=== PATIENT | female | born 1950 | race Caucasian/White ===

== ENCOUNTER 2022-11-13 13:04 | Inpatient (IN) | payer BC ==
[2022-11-13] VITALS (25 sets, daily range): BP systolic 106–161; BP diastolic 67–94
[~2022-11-13] VITALS: Ht 160 cm; Wt 65.3 kg
--- NOTE | 2022-11-13 13:05 | NUR ---
DR HAN AT BEDSIDE
[2022-11-13] MEDS ORDERED: PROPOFOL 100 ML ONE (13:19)
[2022-11-13] MEDS ORDERED: ENOX40DI SQ (13:42)
[2022-11-13] MEDS ORDERED: BUTA1CAP45 PO (13:42)
[2022-11-13] MEDS ORDERED: CEPH500C2 PO (13:42)
[2022-11-13] MEDS ORDERED: HYDR-4303 PO (13:42)
[2022-11-13 13:53] LABS: BASOPHILS # (AUTO) 0.1 K/uL (0.0-0.2); BASOPHILS % (AUTO) 0.8 % (0.0-2.0); HEMATOCRIT 43 % (33-45); HEMOGLOBIN 13.5 g/dL (11.5-14.8); LYMPHOCYTES # (AUTO) 0.5 K/uL (0.8-4.8); LYMPHOCYTES % (AUTO) 3.2 % (20.0-44.0); MEAN CORPUSCULAR HGB CONC 31 g/dl (31.0-36.0); MEAN CORPUSCULAR VOLUME 96 fL (82-100); MONOCYTES % (AUTO) 6.4 % (2.0-12.0); NEUTROPHILS # (AUTO) 14.1 K/uL (1.8-8.9); NEUTROPHILS % (AUTO) 89.6 % (43.0-81.0); PLATELET COUNT (AUTO) 277 K/uL (150-450); RED BLOOD CELL COUNT(AUTO) 4.49 MIL/uL (4.0-5.2); WHITE BLOOD COUNT (AUTO) 15.7 K/uL (4.3-11.0)
--- NOTE | 2022-11-13 13:55 | NUR ---
PATIENT CAME IN ALREADY INTUBATED WITH 7.0 ETT 23@LIP. PATIENT ETT WERE SECURED WITH EQUAL CHEST RISE AND BILATERAL BREATH SOUND NOTED. PATIENT WAS PLACED ON OUR VENTILATOR WITH AC 16, 500, 80%, +5. XRAY TAKEN AND ETT IN PLACE. Addendum: 11/13/22 at 1358 by ROSIO SMITH RT Amended: Links added.
[2022-11-13] MEDS ORDERED: PROPOFOL 1,000 MG/100 ML BOTTLE IV ONE (14:00)
--- NOTE | 2022-11-13 14:00 | NUR ---
RAPID COVID SWAB DONE AND SENT TO LAB
--- NOTE | 2022-11-13 14:20 | NUR ---
LAUNDRY FOLDER AT BEDSIDE FOR ABG
--- NOTE | 2022-11-13 14:45 | NUR ---
DR. HAN INCREASE PEEP TO 10 AND RR 20 AFTER ABG Addendum: 11/13/22 at 1446 by ROSIO SMITH RT Amended: Links added.
[2022-11-13] MEDS ORDERED: IV NS 0.9% 1,000 ML IV PRN (15:00)
[2022-11-13] MEDS ORDERED: MAGNESIUM HYDROXIDE 30 ML UDC PO PRN (15:00)
[2022-11-13] MEDS ORDERED: MAG HYDROX/AL HYDROX/SIMETH 30 ML UDC PO PRN (15:00)
[2022-11-13] MEDS ORDERED: ONDANSETRON HCL/PF 4 MG/2 ML VIAL IVP PRN (15:00)
[2022-11-13] MEDS ORDERED: ACETAMINOPHEN 325 MG TABLET PO PRN (15:00)
[2022-11-13] MEDS: POTASSIUM CHLORIDE 20 MEQ TAB.PRT.SR PO SCH ×3 (15:00→17:00)
--- NOTE | 2022-11-13 15:01 | NUR ---
PAGED DR. SOLARES FOR PICC LINE
[2022-11-13 15:36] LABS: ALANINE AMINOTRANSFERASE 103 U/L (12-78); ALBUMIN 2.5 g/dL (3.4-5.0); ALKALINE PHOSPHATASE 48 U/L (46-116); ASPARTATE AMINOTRANSFERASE 163 U/L (15-37); BILIRUBIN,DIRECT 0.1 mg/dL (0.0-0.2); BILIRUBIN,TOTAL 0.2 mg/dL (0.2-1.0); CALCIUM, SERUM 7.5 mg/dL (8.5-10.1); CARBON DIOXIDE 26 mmol/L (21-32); CHLORIDE 107 mmol/L (98-107); CREATININE 1.2 mg/dL (0.6-1.3); GLUCOSE 195 mg/dL (74-106); SODIUM SERUM 137 mmol/L (136-145); TOTAL PROTEIN, SERUM 5.2 g/dL (6.4-8.2); UREA NITROGEN, BLOOD 15 mg/dL (7-18)
[2022-11-13] MEDS: NOREPINEPHRINE 32 MG in IV NS 0.9% 218 ML IV PRN ×2 (15:38→18:56)
--- NOTE | 2022-11-13 15:50 | NUR ---
RESP TECH AT BEDSIDE FOR ABG
[2022-11-13 15:54] LABS: ABG BASE EXCESS -6.2 mmol/L; ABG OXYGEN SATURATION 95.8 % (92.0-98.5); ABG PCO2 45.5 mmHg (35.0-45.0); ABG PH 7.274 (7.350-7.450); ABG PO2 82.7 mmHg (75.0-100.0); AaDO2 439.9 mmHg; COHb 0.6 % (0.5-1.5); MetHb 0.5 % (0.0-1.5); O2Hb 94.7 % (94.0-97.0); PEEP,BG 5 cm H2O; SITE, ABG Right Radial; VT, ABG 500 mL
[2022-11-13 15:56] LABS: ABG BASE EXCESS -5.8 mmol/L; ABG OXYGEN SATURATION 96.6 % (92.0-98.5); ABG PCO2 45.9 mmHg (35.0-45.0); ABG PH 7.279 (7.350-7.450); ABG PO2 90.7 mmHg (75.0-100.0); AaDO2 431.5 mmHg; COHb 0.8 % (0.5-1.5); MetHb 0.7 % (0.0-1.5); O2Hb 95.2 % (94.0-97.0); PEEP,BG 10 cm H2O; SITE, ABG Right Radial; VT, ABG 500 mL
[2022-11-13] MEDS: PIPERACILLIN /TAZOBACTAM 3.375 G in IV D5W 50 ML IV SCH ×2 (16:50→23:24)
--- NOTE | 2022-11-13 16:55 | NUR ---
REPORT GIVEN TO GISSEL HENNING OF ICU
[2022-11-13] MEDS ORDERED: FUROSEMIDE 40 MG/4 ML VIAL ONE (16:57)
[2022-11-13] MEDS ORDERED: VANCOMYCIN 1 GM in IV D5W 250 ML IV ONE (17:00)
[2022-11-13] MEDS: FUROSEMIDE 40 MG/4 ML VIAL IV SCH ×3 (17:05→23:24)
--- NOTE | 2022-11-13 17:45 | NUR ---
RN note - admission to ICU Received patient from ER, transported to ICU by RN ALEXA Byers and RT Gayatri. monitor technician showed SR HR 79/min. BP 133/82mmhg with levophed at 0.01mcg/kg/hr. Intubated with size 7 ETT, marking at lip 23cm. Suported by ventilator, AC mode, rate 20/min. TV 500mL, FiO2 80%, PEEP [id number]. Spo2 100%, RR 22/min. Patient is on propofol sedation increasing to 35 mcg/min/kg. Circulation over bilateral hands is good with restraints use. There's some oozing from the main abdominal wound(on the abdominal corset). Keep trendenlenberg position to reduce abdominal pressure. Call dang is placed within reach. Bed is locked and placed in the lowest position. All safety measures have been implemented. Will continue monitoring and care.
[2022-11-13] MEDS: PROPOFOL 100 ML IV PRN ×2 (18:53→21:23)
--- NOTE | 2022-11-13 19:00 | NUR ---
RN note ER nurse Zeeshan just handed a bag of 1g Vancomycin upon transfer of patient. Checked in the eMAR that it was registered as given. Notified pharmacy about the situation and pharmacist said to proceed to administer as it was the loading dose of vancomycin. Adminsitered at 19:00 via peripheral line.
--- NOTE | 2022-11-13 19:30 | NUR ---
RN note - KCL replacement Clarified with MD DR. Hawthorne about the need for KCL replacement as patient's potassium was 4mmol/L at 14:00. said no need to administer KCL tab and check CBC and BMP tomorrow. Will follow.
--- NOTE | 2022-11-13 19:45 | NUR ---
RCVD PT ORALLY INTUBATED 7.0 SECURED @ 23CM LIP LINE ON VENT SETTINGS OF AC 20, VT 500, FIO2 80% AND PEEP 10. VENT PLUGGED INTO RED OUTLET, VENT ALARMS ON AND AUDIBLE. NO RESPIRATORY DISTRESS NOTED AT THIS TIME. WILL CONTINUE TO MONITOR T/O SHIFT.
[2022-11-13] MEDS ORDERED: MAGNESIUM HYDROXIDE 30 ML UDC GT PRN (19:47)
[2022-11-13] MEDS ORDERED: MAG HYDROX/AL HYDROX/SIMETH 30 ML UDC GT PRN (19:47)
[2022-11-13] MEDS ORDERED: PHARMACY TO CHANGE PO MEDS TO GT/NG XX PRN (20:00)
[2022-11-13] MEDS ORDERED: ACETAMINOPHEN 650 MG/20.3 ML UDC NG PRN (20:00)
[2022-11-13] MEDS ORDERED: ACETAMINOPHEN 650 MG/20.3 ML UDC GT PRN (20:00)
--- NOTE | 2022-11-13 20:22 | NUR ---
RN note MRSA swab was taken.
[2022-11-13 21:29] LABS: CALCIUM, SERUM 7.2 mg/dL (8.5-10.1); CREATININE 1.1 mg/dL (0.6-1.3); POTASSIUM 3.6 mmol/L (3.5-5.1)
[2022-11-14] VITALS (54 sets, daily range): BP systolic 99–144; BP diastolic 33–87
--- NOTE | 2022-11-14 01:56 | NUR ---
TITRATE FIO2 TO 70%
[2022-11-14] MEDS: PROPOFOL 100 ML IV PRN (03:51)
--- NOTE | 2022-11-14 03:51 | NUR ---
TITRATE FIO2 TO 60%, JUVNECIO CARREON NOTIFIED. SPO2 100% ,WILL CONTINUE TO MONITOR T/O SHIFT.
[2022-11-14 04:53] LABS: BASOPHILS % (AUTO) 0.2 % (0.0-2.0); HEMATOCRIT 40 % (33-45); HEMOGLOBIN 13.4 g/dL (11.5-14.8); LYMPHOCYTES # (AUTO) 1.4 K/uL (0.8-4.8); MEAN CORPUSCULAR HGB CONC 33 g/dl (31.0-36.0); MEAN CORPUSCULAR VOLUME 92 fL (82-100); MONOCYTES # (AUTO) 1.1 K/uL (0.1-1.30); MONOCYTES % (AUTO) 9.8 % (2.0-12.0); PLATELET COUNT (AUTO) 278 K/uL (150-450); RED BLOOD CELL COUNT(AUTO) 4.38 MIL/uL (4.0-5.2); WHITE BLOOD COUNT (AUTO) 11.6 K/uL (4.3-11.0)
[2022-11-14] MEDS: VANCOMYCIN 0.75 GM in IV D5W 250 ML IV SCH ×2 (05:10→17:58)
[2022-11-14 05:37] LABS: CALCIUM, SERUM 7.5 mg/dL (8.5-10.1); CARBON DIOXIDE 22 mmol/L (21-32); CHLORIDE 105 mmol/L (98-107); CREATININE 1.2 mg/dL (0.6-1.3); GLUCOSE 133 mg/dL (74-106); MAGNESIUM 1.6 mg/dL (1.8-2.4); POTASSIUM 3.2 mmol/L (3.5-5.1); SODIUM SERUM 139 mmol/L (136-145); UREA NITROGEN, BLOOD 14 mg/dL (7-18)
[2022-11-14 05:43] LABS: ABG OXYGEN SATURATION 99.2 % (92.0-98.5); ABG PCO2 24.5 mmHg (35.0-45.0); ABG PH 7.578 (7.350-7.450); AaDO2 198.9 mmHg; COHb 0.3 % (0.5-1.5); MetHb 0.6 % (0.0-1.5); O2Hb 98.3 % (94.0-97.0); PEEP,BG 10 cm H2O; SITE, ABG Left Radial; VT, ABG 500 mL
--- NOTE | 2022-11-14 05:48 | NUR ---
TITRATE FIO2 TO 50%
[2022-11-14] MEDS: PIPERACILLIN /TAZOBACTAM 3.375 G in IV D5W 50 ML IV SCH ×3 (06:07→17:53)
--- NOTE | 2022-11-14 07:15 | NUR ---
RN note Received patient in bed, sedated with propofol at 35mcg/kg/min with sedation score of 3. peoplesoft hcm consultant showed SR HR 80/min. BP 135/74mmHg. Spo2 100% with FiO2 0.5 via ETT, marking at 23cm. No LL edema is noted. Circulation over bilateral hand is good. Call dang is placed within reach. Bed is locked and placed in the lowest position. All safety measures have been implemented. WIll continue monitoring and care.
[2022-11-14 07:56] LABS: CHOLESTEROL 133 mg/dL (<200); HDL CHOLESTEROL 46 mg/dL (40-60); LDL 70 mg/dL (0-99); TRIGLYCERIDES 147 mg/dL (30-150)
--- NOTE | 2022-11-14 08:28 | NUR ---
As per Dr. Schroeder's order, propofol is off at 08:00. Patient has now regained consciousness and follows commands. Dr. Schroeder has just visited patient and is aware of her conscious level. He ordered ABG 30 minutes after switching to SIMV mode. will inform RT of the change.
[2022-11-14] MEDS ORDERED: DC PROPOFOL WHEN EXTUBATED XX PRN (09:00)
[2022-11-14] MEDS ORDERED: POTASSIUM CHLORIDE 20 MEQ TAB.PRT.SR PO SCH (09:00)
--- NOTE | 2022-11-14 09:00 | NUR ---
SIMV mode Patient is put on SIMV mode at around 0900. TV is >400mL all along with SpO2 >95%, RR 16/min, patient is not in distress. Keep observe.
[2022-11-14] MEDS: Magnesium 1GM/D5W 100ML PREMIX 100 ML IV SCH ×2 (09:17→10:41)
[2022-11-14] MEDS: PANTOPRAZOLE 40 MG VIAL IV SCH (09:17)
[2022-11-14 09:39] LABS: ABG BASE EXCESS 0.2 mmol/L; ABG PCO2 35.9 mmHg (35.0-45.0); ABG PH 7.442 (7.350-7.450); AaDO2 210.1 mmHg; COHb 0.4 % (0.5-1.5); MetHb 0.6 % (0.0-1.5); SITE, ABG Right Radial; VENT MODE, BG SIMV 4 450 PS 15 50% +5
--- NOTE | 2022-11-14 09:50 | NUR ---
Extubation ABG 30minutes post changing to SIMV mode is taken. RT wood showed the result to Dr. Schroeder, who ordered to extubate patient. Extubated at 0945 with suction done. Spo2 99%, RR 18/min. Keep observation.
--- NOTE | 2022-11-14 09:54 | NUR ---
Hypokalemia Clarified with DR. Salcido about the switching of KCL from oral to IV. He said to switched to IV 40mEq KCL. Done as ordered.
[2022-11-14] MEDS ORDERED: POTASSIUM CHLORIDE 10 MEQ/50 ML PREMIXED IVPB FOR PERIPHERAL LINE IV ONE (10:00)
--- NOTE | 2022-11-14 11:32 | NUR ---
Swallowing evaluation Bedside swallowing test done. Patient is able to consume apple sauce, spoonful of water and lastly water in a small cup without coughing or choking noted. There's no drooling or delay in swallowing noted in patient. Will administer medications orally.
[2022-11-14] MEDS: CARVEDILOL 3.125 MG TABLET PO SCH ×2 (11:39→21:08)
[2022-11-14] MEDS: ACETAMINOPHEN 650 MG/20.3 ML UDC PO PRN ×2 (11:39→17:59)
[2022-11-14] MEDS: POTASSIUM CL. PREMIX PERIPHER. 50 ML IV SCH ×4 (11:40→16:56)
--- NOTE | 2022-11-14 15:45 | NUR ---
Resume diet Dr. Mcghee ordered to resume diet. For full liquid diet today. Keep observation.
--- NOTE | 2022-11-14 15:47 | NUR ---
Oozing from wound Noted oozing from abdominal wound on the right side. MICH drain is under suction and is connected. H&H this morning was normal. Informed Dr. Mcghee and she said to keep the wound dressing, observation and recheck H&H.
[2022-11-14] MEDS ORDERED: IV NS 0.9% 250 ML IV ONE (18:00)
[2022-11-14] MEDS ORDERED: IV NS 0.9% 250 ML IV PRN (18:30)
--- NOTE | 2022-11-14 18:42 | NUR ---
Electrolyte imbalance K 3.2mmol/L & Mg 1.6mmol/L today. Doctor ordered 40mEq of KCL and 2g of Mg IV. Adminsitered as ordered. For BMP check tomorrow.
[2022-11-14 20:19] LABS: HEMOGLOBIN 12.1 g/dL (11.5-14.8)
[2022-11-15] VITALS (30 sets, daily range): BP systolic 113–156; BP diastolic 65–101
--- NOTE | 2022-11-15 00:52 | NUR ---
ICU/RN: PT COMPLAINT OF MIGRAINE HEADACHE. NEW ORDER RECEIVED FOR FIORICET 1 CAPSULE Q6H PRN MIGRAINES. FIORICET NOT STOCKED IN OMNICELL WILL HAVE TO WAIT FOR PHARMACY. PAGED DR. FERRARI FOR ALTERNATE PAIN MED ORDER IN THE MEANTIME AWAITING REPLY.
[2022-11-15] MEDS: HYDROCODONE/APAP 5/325MG TABLET PO PRN (01:25)
[2022-11-15 04:43] LABS: BASOPHILS % (AUTO) 0.4 % (0.0-2.0); EOSINOPHILS % (AUTO) 0.4 % (0.0-6.0); HEMATOCRIT 36 % (33-45); HEMOGLOBIN 11.9 g/dL (11.5-14.8); LYMPHOCYTES # (AUTO) 1.4 K/uL (0.8-4.8); LYMPHOCYTES % (AUTO) 12.5 % (20.0-44.0); MEAN CORPUSCULAR HGB CONC 33 g/dl (31.0-36.0); MEAN CORPUSCULAR VOLUME 92 fL (82-100); MONOCYTES % (AUTO) 9.5 % (2.0-12.0); NEUTROPHILS # (AUTO) 8.4 K/uL (1.8-8.9); NEUTROPHILS % (AUTO) 77.2 % (43.0-81.0); PLATELET COUNT (AUTO) 241 K/uL (150-450); WHITE BLOOD COUNT (AUTO) 10.8 K/uL (4.3-11.0)
[2022-11-15 05:19] LABS: ALANINE AMINOTRANSFERASE 45 U/L (12-78); ALBUMIN 2.5 g/dL (3.4-5.0); ALKALINE PHOSPHATASE 34 U/L (46-116); ASPARTATE AMINOTRANSFERASE 36 U/L (15-37); BILIRUBIN,DIRECT 0.2 mg/dL (0.0-0.2); BILIRUBIN,TOTAL 0.6 mg/dL (0.2-1.0); CALCIUM, SERUM 7.9 mg/dL (8.5-10.1); CARBON DIOXIDE 28 mmol/L (21-32); CHLORIDE 109 mmol/L (98-107); GLUCOSE 110 mg/dL (74-106); MAGNESIUM 2.6 mg/dL (1.8-2.4); PHOSPHORUS 2.6 mg/dL (2.5-4.9); POTASSIUM 3.7 mmol/L (3.5-5.1); SODIUM SERUM 142 mmol/L (136-145); TOTAL PROTEIN, SERUM 5.4 g/dL (6.4-8.2); UREA NITROGEN, BLOOD 10 mg/dL (7-18)
--- NOTE | 2022-11-15 07:40 | NUR ---
ICU/RN PT IS RESTING.ON 2L N/C .SAT O2-99%.V/S STABLE ,AFEBRILE.NO PAIN REPORTED AT THIS TIME.PT IS 2 DAYS POST OP,ABDOMINAL REDACTION SURGERY ,FROM [facility]. HAS ABDOMINAL DRESSING WITH BLOODY SECRETION,AND 2 ABDOMINAL MICH.DRAINING WITH BLOODY SECRETIONS.F/C DRAINING WITH YELLOW URINE.IV-HL.
[2022-11-15] MEDS: BUTALB/APAP/CAFFEINE 1 EACH TABLET PO PRN ×3 (08:31→21:14)
[2022-11-15] MEDS: PANTOPRAZOLE 40 MG VIAL IV SCH (08:31)
[2022-11-15] MEDS: CARVEDILOL 3.125 MG TABLET PO SCH ×2 (08:32→21:15)
--- NOTE | 2022-11-15 09:00 | NUR ---
ICU/RN DUE MEDS ARE GIVEN ORDERED.PT EATS 100% FROM HER MEAL TRAY. DR LOMAS SEEN THE PT.OK TRANSFER TO TELE UNIT. CT ANGIO ORDERED.
[2022-11-15] MEDS ORDERED: NITROGLYCERIN 0.4 MG/TAB BOTTLE ONE (12:25)
[2022-11-15] MEDS ORDERED: IOHEXOL-350 100 ML VIAL IV ONE (12:25)
[2022-11-15] MEDS ORDERED: METOPROLOL TARTRATE INJ 5 MG/5 ML AMPUL ONE ×3 (12:25→13:21)
[2022-11-15] MEDS ORDERED: IV NS 0.9% 250 ML IV ONE (12:25)
[2022-11-15] MEDS ORDERED: CT SWABBABLE VALVE TRANS SET 1 EA INFUS.SET MC ONE (12:25)
--- NOTE | 2022-11-15 14:05 | NUR ---
ICU/RN CTA DONE. DURING PROCEDURE 10 DOSES 5 MG METOPROLOL IV GIVEN ORDERED. 1 TAB NITRO SL .PT IS BACK TO THE ROOM .V/S STABLE,AFEBRILE. NO PAIN REPORTED AT THIS TIME.
--- NOTE | 2022-11-15 18:40 | NUR ---
ICU/RN PM CARE PROVIDED.ABDOMINAL SURGICAL DRESSING HAS SOME BLOOD DISCHARGE.TALK TO THE [facility] FROM [facility]. NO DRESSING CHANGE FOR 1 WEEK.MICH DRAINAGE 65 ML FROM BOTH JPS.V/S STABLE,AFEBRILE. NO PAIN REPORTED AT THIS TIME.TRANSFER TO TELE UNIT.ROOM 308.
--- NOTE | 2022-11-15 19:40 | NUR ---
TELERN FULLY AWAKE, JUST ARRIVED FROM ICU VIA BED. ALERT/ORIENTED X 4. NO SOB. PATIENT ON 2L VIA NC. BEDREST FOR N OW, SAFETY PRECAUTIONS EMPHASIZED, CALL LIGHT USE REVIEWED WITH PATIENT WELL UNDERSTOOD. PLAN OF CARE AND MEDICATION REGIMEN DISCUSSED APPEARS TO UNDERSTAND.. ALL NEEDS MADE, SR ON THE MONITOR. REMINDED TO CALL STAFF FOR ANY ASSISTANCE OR DISCOMFORTS.CONTINUED MONITORING
--- NOTE | 2022-11-15 21:00 | NUR ---
TELERN DAUGHTER AT BEDSIDE, STAYED FOR FEW MINUTES. PATIENT EAGER TO GO HOME. WANTED FIORECET FOR HER MIGRAINE, ADMINISTERED.BEDREST INSTRUCTED.
[2022-11-16] VITALS: BP 115/57
[2022-11-16 00:26] VITALS: BP 115/57
--- NOTE | 2022-11-16 00:39 | NUR ---
TELERN ASLEEP APPEARS COMFORTABLE. CONTINUED MONITORING
[2022-11-16 04:00] VITALS: BP 136/72
[2022-11-16 05:55] LABS: BASOPHILS # (AUTO) 0.1 K/uL (0.0-0.2); BASOPHILS % (AUTO) 0.6 % (0.0-2.0); EOSINOPHILS % (AUTO) 1.7 % (0.0-6.0); HEMATOCRIT 35 % (33-45); HEMOGLOBIN 11.5 g/dL (11.5-14.8); LYMPHOCYTES # (AUTO) 1.4 K/uL (0.8-4.8); LYMPHOCYTES % (AUTO) 14.9 % (20.0-44.0); MEAN CORPUSCULAR HGB CONC 33 g/dl (31.0-36.0); MEAN CORPUSCULAR VOLUME 93 fL (82-100); MONOCYTES # (AUTO) 0.9 K/uL (0.1-1.30); MONOCYTES % (AUTO) 9.5 % (2.0-12.0); NEUTROPHILS % (AUTO) 73.3 % (43.0-81.0); PLATELET COUNT (AUTO) 246 K/uL (150-450); RED BLOOD CELL COUNT(AUTO) 3.76 MIL/uL (4.0-5.2); WHITE BLOOD COUNT (AUTO) 9.5 K/uL (4.3-11.0)
[2022-11-16 05:59] LABS: CALCIUM, SERUM 8.2 mg/dL (8.5-10.1); CARBON DIOXIDE 27 mmol/L (21-32); CHLORIDE 106 mmol/L (98-107); CREATININE 0.9 mg/dL (0.6-1.3); GLUCOSE 102 mg/dL (74-106); POTASSIUM 3.9 mmol/L (3.5-5.1); SODIUM SERUM 139 mmol/L (136-145); UREA NITROGEN, BLOOD 10 mg/dL (7-18)
--- NOTE | 2022-11-16 06:00 | NUR ---
TELERN AWAKE, AM CARE STARTED, EMPTIED LESS THAN 5CC FROM LEFT MICH DRAIN, AND 30CC FROM RIGHT MICH DRAIN. PER PATIENT WAS INSTRUCTED BY OWN SURGEON PREVIOUS POLITICAL SCIENCE CHAIR NOT TO TOUCH DRESSING. SITE WITH OLD BLOODY DRAINAGE. WILL ENDORSED TO INCOMING RN TO FOLLOW UP DRESSING CHANGES FROM MD. REPOSITIONED FOR COMFORT. REMAINS SR ON THE MONITOR. CONTINUED MONITORING
[2022-11-16 08:00] VITALS: BP 132/82
--- NOTE | 2022-11-16 08:02 | NUR ---
RN OPENING NOTE RECEIVED PATIENT SLEEPING IN THE BED, AO X 4. ABLE TO RESPONDS ALL STIMULI. RESPIRATORY EVEN AND UNLABORED IN ROOM AIR. IN NO RESPIRATORY DISTRESS OBSERVED. SKIN IS WARM TO TOUCH, KEEP CLEAN/DRY. KEPT ELEVATED HOB FOR ASPIRATION PRECAUTION/ENSURE AIRWAY, ALSO LOWEST BED POSITIONED. BED ALARM IS ON AT ALL THE TIME FOR SAFETY. CALL LIGHT WITHIN REACH, WILL CONTINUE TO MONITOR.
[2022-11-16] MEDS: CARVEDILOL 3.125 MG TABLET PO SCH (08:48)
[2022-11-16] MEDS: PANTOPRAZOLE 40 MG VIAL IV SCH (08:48)
[2022-11-16] MEDS ORDERED: CARVEDILOL 3.125 MG TABLET PO SCH (09:00)
[2022-11-16] MEDS ORDERED: PANTOPRAZOLE 40 MG TABLET.DR PO SCH (09:00)
[2022-11-16] MEDS ORDERED: ASPIRIN 81 MG TAB.CHEW PO SCH (09:00)
[2022-11-16 12:00] VITALS: BP 103/67
[2022-11-16] MEDS: HYDROCODONE/APAP 5/325MG TABLET PO PRN (15:10)
[2022-11-16 16:00] VITALS: BP 129/75
--- NOTE | 2022-11-16 18:20 | NUR ---
RN CLOSING NOTE PATIENT RESTING IN BED. IN NO ACUTE DISTRESS OBSERVED. RESPIRATORY EVEN AND UNLABORED IN ROOM AIR, O2SAT 97%. IN NO RESPIRATORY DISTRESS NOTED. SKIN IS WARM TO TOUCH KEEP CLEAN/DRY. PATIENT RECEIVED ORDER D/C TO HOME, HER DTR AT BED SIDE. IN STABLE CONDITION.
--- NOTE | 2022-11-16 19:40 | NUR ---
DISCHARGE NOTE PATIENT ROLLED DOWN AT THIS TIME VIA WHEELCHAIR, ACCOMPANIED BY RN AND DAUGHTER. PATIENT IN STABLE CONDITION AT THIS TIME. NO S/S OF APPARENT DISTRESS ON ROOM AIR. DENIES ANY PAIN. NO ID BAND, NO IV ACCESS NOTED. LEFT WITH PERSONAL BELONGINGS AND PAPERWORKS, GIVEN BY THE MORNING JUVENCIO TSAI. LEFT VIA PRIVATE VEHICLE, GOING HOME TO [place] PER REPORT.
== END 2022-11-16 20:00 | disposition home health service (06) | DRG 208 ==
LOC: ER 13:05 → TRANSITION 14:38 → ICU 16:50 → TELE 11-15 18:37
PROVIDERS: ADMIT Nurse Practitioner Acute Care; ATTEND Nurse Practitioner Acute Care
PROC: 5A1945Z Respiratory Ventilation, 24-96 Consecutive Hours (ICD-10-PCS; principal; 2022-11-13)
DX: J81.0 Acute pulmonary edema (principal); J95.821 Acute postprocedural respiratory failure; J15.9 Unspecified bacterial pneumonia; E44.0 Moderate protein-calorie malnutrition; I42.9 Cardiomyopathy, unspecified; J98.11 Atelectasis; Y83.8 Other surgical procedures as the cause of abnormal reaction of the patient, or of later complication, without mention of misadventure at the time of the procedure; E87.70 Fluid overload, unspecified; Y92.530 Ambulatory surgery center as the place of occurrence of the external cause; Z20.822 Contact with and (suspected) exposure to COVID-19; Z88.2 Allergy status to sulfonamides; Z79.01 Long term (current) use of anticoagulants; G43.909 Migraine, unspecified, not intractable, without status migrainosus; R74.01 Elevation of levels of liver transaminase levels; E83.51 Hypocalcemia; E88.09 Other disorders of plasma-protein metabolism, not elsewhere classified; J06.9 Acute upper respiratory infection, unspecified; Z98.890 Other specified postprocedural states; E66.9 Obesity, unspecified; Z96.652 Presence of left artificial knee joint; Z68.25 Body mass index [BMI] 25.0-25.9, adult; E83.42 Hypomagnesemia; E87.6 Hypokalemia; Z92.3 Personal history of irradiation; Z90.81 Acquired absence of spleen; Z85.72 Personal history of non-Hodgkin lymphomas; Z85.89 Personal history of malignant neoplasm of other organs and systems
CPT/HCPCS: 31720; 36415; 36600; 71045-TC; 75574; 80048-TC; 80053-TC; 80061-TC; 80076-TC; 80202-TC; 82803-TC; 83605-TC; 83735-TC; 83880; 84100-TC; 84478-TC; 84484-TC; 85025-TC; 85027-TC; 85378-TC; 87040-TC; 87081-TC; 92526; 92611-TC; 93307-TC; 94002-TC; 94003-TC; 94799-TC; 97112-TC; 97116-TC; 97530-TC; A7526; C9113; G0378; J1940; J2543; J3370; J3475; J3480; J3490; J7030; J7050; J7060; Q9967